=== PATIENT | female | born 1970 | race Caucasian/White ===

== ENCOUNTER 2017-08-20 15:55 | Emergency (ER) | payer OTHER ==
[~2017-08-20] VITALS: Ht 162.6 cm; Wt 94.8 kg
[~2017-08-20 15:55] MED LIST: CHOL100058 PO; HYDR12.556 PO; KET10 PO; LISI20TA29 PO; LOR5/325 PO
[2017-08-20] MEDS ORDERED: NORG1TAB74 PO (16:17)
[2017-08-20] MEDS ORDERED: MULT1TAB67 PO (16:17)
[2017-08-20] MEDS ORDERED: POTA20TA94 PO (16:17)
[2017-08-20] MEDS ORDERED: HYDR-2966 PO (16:17)
[2017-08-20] MEDS ORDERED: NS(*) 0.9% 1000 ML BAG 1,000 ML IV ONE ×2 (16:31→18:00)
[2017-08-20] MEDS ORDERED: ONDANSETRON 4 MG/2 ML VIAL IVP ONE (16:35)
[2017-08-20 16:39] LABS: PLATELET COUNT, AUTOMATED 295 K/uL (150-450)
[2017-08-20] MEDS ORDERED: POTASSIUM CHL 20 MEQ TABCR PO ONE (16:50)
[2017-08-20] MEDS ORDERED: MORPHINE 2 MG/ML SYR IVP ONE (18:05)
[2017-08-20] MEDS ORDERED: diphenhydrAMINE 50 MG/ML VIAL IVP ONE (19:00)
[2017-08-20] MEDS ORDERED: ONDA4TAB PO (19:15)
--- NOTE | 2017-08-20 19:16 | ER Report ---
History and Physical Time Seen By MD: 16:00 Hx. of Stated Complaint: pt reports vomiting and diarrhea, suspected food poisoning; pt hyperventilating , carpal-pedal spasms HPI/ROS CHIEF COMPLAINT: Nausea, vomiting, diarrhea HISTORY OF PRESENT ILLNESS: Patient is a 46-year-old female who presents the ED with complaint of nausea, vomiting, diarrhea for the past day. She states that yesterday she ate at a restaurant and [place], [place] and thought that the food tasted funny. She states about 2 hours later she started to have some diarrhea. She states that she had can continue will diarrhea through the night and this morning was having some nausea and vomiting as well. She states that today she has had about 7 episodes of emesis and 7 episodes of diarrhea. She states that she has not been able to drink fluids due to the amount nausea. She has noted some sharp epigastric area pain but this has been intermittent. Patient states that she does have a history of cholecystectomy. REVIEW OF SYSTEMS: Constitutional: No fever, no chills. Eyes: No discharge. ENT: No sore throat. Cardiovascular: No chest pain, no palpitations. Respiratory: No cough, no shortness of breath. Gastrointestinal: See history of present illness. Genitourinary: No hematuria. Musculoskeletal: No back pain. Skin: No rashes. Neurological: No headache. Allergies: Coded Allergies: azithromycin (Verified Allergy, Severe, SOB, 08/20/17) Penicillins (Verified Allergy, Intermediate, sob, 08/20/17) Home Meds Reported Medications Multivitamin With Minerals (HAIR, SKIN & NAILS) 1 Each Tablet, 1 EACH PO QDAY 08/20/17 Potassium Chloride (POTASSIUM CHLORIDE) 20 Meq Tab.er.prt, 20 MEQ PO QDAY 08/20/17 Hydrochlorothiazide (HYDROCHLOROTHIAZIDE) 25 Mg Tablet, 1 TAB PO QDAY, TAB 08/20/17 Norgestimate-Ethinyl Estradiol (SPRINTEC) 1 Each Tablet, 1 EACH PO QDAY 08/20/17 Cholecalciferol (Vitamin D3) (VITAMIN D) 1,000 Unit Capsule, PO, CAPSULE 10/16/15 Discontinued Reported Medications Hydrochlorothiazide (HYDROCHLOROTHIAZIDE) 12.5 Mg Capsule, 25 MG PO QDAY, CAPSULE 09/14/15 Lisinopril (LISINOPRIL) 20 Mg Tablet, PO QDAY, TAB 09/14/15 Reviewed Nurses Notes: Yes Old Medical Records Reviewed: Yes Hx Smoking: No Smoking Status: Never Smoker Hx Substance Use Disorder: No Hx Alcohol Use: No Constitutional Vital Sign - Last 24 Hours 08/20/17 08/20/17 08/20/17 08/20/17 16:00 16:15 16:16 16:17 Temp 98.9 Pulse 91 91 92 Resp 16 B/P (MAP) 129/83 129/83 (98) Pulse Ox 96 94 96 O2 Delivery Room Air 08/20/17 08/20/17 08/20/17 08/20/17 16:19 16:21 16:23 16:25 Pulse 91 91 90 90 Pulse Ox 96 96 96 92 08/20/17 08/20/17 08/20/17 08/20/17 16:27 16:29 16:30 16:31 Pulse 91 92 90 B/P (MAP) 120/58 (78) Pulse Ox 94 95 95 08/20/17 08/20/17 08/20/17 08/20/17 16:33 16:35 16:37 16:39 Pulse 87 88 87 86 Pulse Ox 96 89 89 95 08/20/17 08/20/17 08/20/17 08/20/17 16:41 16:43 16:45 16:47 Pulse 86 89 87 87 Pulse Ox 85 92 91 90 08/20/17 08/20/17 08/20/17 08/20/17 16:49 16:51 17:05 17:07 Pulse 94 88 84 Pulse Ox 95 98 98 99 08/20/17 08/20/17 08/20/17 08/20/17 17:09 17:11 17:13 17:15 Pulse 90 88 87 84 Pulse Ox 98 99 98 100 08/20/17 08/20/17 08/20/17 08/20/17 17:17 17:19 17:21 17:23 Pulse 77 77 75 77 Pulse Ox 98 96 98 97 08/20/17 08/20/17 08/20/17 08/20/17 17:25 17:27 17:29 17:31 Pulse 79 74 79 Pulse Ox 96 95 88 97 08/20/17 08/20/17 08/20/17 08/20/17 17:33 17:35 17:37 17:39 Pulse 77 76 76 Pulse Ox 98 99 99 95 08/20/17 08/20/17 08/20/17 08/20/17 17:41 17:43 17:52 17:53 Pulse 81 78 B/P (MAP) 134/74 (94) Pulse Ox 100 99 100 08/20/17 08/20/17 08/20/17 08/20/17 17:58 18:02 18:08 18:18 Pulse 77 75 77 B/P (MAP) 121/68 (85) Pulse Ox 99 99 99 08/20/17 08/20/17 08/20/17 18:18 18:28 18:30 Pulse 82 B/P (MAP) 119/54 (75) Pulse Ox 100 O2 Flow Rate 2.0 Intake and Output 08/20/17 08/20/17 08/21/17 15:00 23:00 07:00 Intake Total 1000 ml Balance 1000 ml Physical Exam General Appearance: The patient is alert, has no immediate need for airway protection and no signs of toxicity. Patient appears to be in mild distress. Eyes: Pupils equal and round no pallor or injection. ENT, Mouth: Mucous membranes are dry. Respiratory: There are no retractions, lungs are clear to auscultation. Cardiovascular: Regular rate and rhythm. Gastrointestinal: There is slight epigastric tenderness with palpation. No rebound or guarding is present. Normal bowel sounds in all 4 quadrants. Skin: Warm and dry, no rashes. Musculoskeletal: Neck is supple non tender. Extremities are nontender, nonswollen and have full range of motion. DIFFERENTIAL DIAGNOSIS: After history and physical exam differential diagnosis was considered for abdominal pain including but not limited to appendicitis, cholecystitis, gastritis and urinary tract infection. Medical Decision Making Data Points Result Diagram: 08/20/17 1626 08/20/17 1626 Laboratory Hematology Test 08/20/17 16:26 Red Blood Count 5.10 M/uL (4.17-5.56) Mean Corpuscular Volume 86.0 fL (80.0-96.0) Mean Corpuscular Hemoglobin 29.8 pg (26.0-33.0) Mean Corpuscular Hemoglobin Concent 34.6 g/dL (32.0-36.0) Red Cell Distribution Width 14.0 % (11.5-14.5) Mean Platelet Volume 8.4 fL (7.2-11.1) Neutrophils (%) (Auto) 94.2 % (39.4-72.5) Lymphocytes (%) (Auto) 3.9 % (17.6-49.6) Monocytes (%) (Auto) 1.8 % (4.1-12.4) Eosinophils (%) (Auto) 0.0 % (0.4-6.7) Basophils (%) (Auto) 0.1 % (0.3-1.4) Nucleated RBC Relative Count (auto) 0.0 /100WBC Neutrophils # (Auto) 10.5 K/uL (2.0-7.4) Lymphocytes # (Auto) 0.4 K/uL (1.3-3.6) Monocytes # (Auto) 0.2 K/uL (0.3-1.0) Eosinophils # (Auto) 0.0 K/uL (0.0-0.5) Basophils # (Auto) 0.0 K/uL (0.0-0.1) Nucleated RBC Absolute Count (auto) 0.00 K/uL Sodium Level 135 mmol/L (137-145) Potassium Level 3.0 mmol/L (3.5-5.0) Chloride Level 98 mmol/L (98-107) Carbon Dioxide Level 23 mmol/L (22-31) Blood Urea Nitrogen 21 mg/dl (7-18) Creatinine 1.00 mg/dl (0.52-1.04) Glomerular Filtration Rate Calc 59.7 Random Glucose 118 mg/dl (75-110) Calcium Level 8.7 mg/dl (8.4-10.2) Total Bilirubin 1.5 mg/dl (0.2-1.3) Aspartate Amino Transf (AST/SGOT) 22 U/L (0-35) Alanine Aminotransferase (ALT/SGPT) 22 U/L (0-56) Alkaline Phosphatase 59 U/L (0-126) Total Protein 7.5 gm/dl (6.3-8.2) Albumin 3.8 g/dl (3.5-5.0) Lipase 95 U/L (23-300) Human Chorionic Gonadotropin, Qual Negative (NEGATIVE) Chemistry Test 08/20/17 16:26 White Blood Count 11.1 k/uL (4.5-11.0) Red Blood Count 5.10 M/uL (4.17-5.56) Hemoglobin 15.2 g/dL (12.0-16.0) Hematocrit 43.9 % (34.0-47.0) Mean Corpuscular Volume 86.0 fL (80.0-96.0) Mean Corpuscular Hemoglobin 29.8 pg (26.0-33.0) Mean Corpuscular Hemoglobin Concent 34.6 g/dL (32.0-36.0) Red Cell Distribution Width 14.0 % (11.5-14.5) Platelet Count 295 K/uL (150-450) Mean Platelet Volume 8.4 fL (7.2-11.1) Neutrophils (%) (Auto) 94.2 % (39.4-72.5) Lymphocytes (%) (Auto) 3.9 % (17.6-49.6) Monocytes (%) (Auto) 1.8 % (4.1-12.4) Eosinophils (%) (Auto) 0.0 % (0.4-6.7) Basophils (%) (Auto) 0.1 % (0.3-1.4) Nucleated RBC Relative Count (auto) 0.0 /100WBC Neutrophils # (Auto) 10.5 K/uL (2.0-7.4) Lymphocytes # (Auto) 0.4 K/uL (1.3-3.6) Monocytes # (Auto) 0.2 K/uL (0.3-1.0) Eosinophils # (Auto) 0.0 K/uL (0.0-0.5) Basophils # (Auto) 0.0 K/uL (0.0-0.1) Nucleated RBC Absolute Count (auto) 0.00 K/uL Glomerular Filtration Rate Calc 59.7 Calcium Level 8.7 mg/dl (8.4-10.2) Total Bilirubin 1.5 mg/dl (0.2-1.3) Aspartate Amino Transf (AST/SGOT) 22 U/L (0-35) Alanine Aminotransferase (ALT/SGPT) 22 U/L (0-56) Alkaline Phosphatase 59 U/L (0-126) Total Protein 7.5 gm/dl (6.3-8.2) Albumin 3.8 g/dl (3.5-5.0) Lipase 95 U/L (23-300) Human Chorionic Gonadotropin, Qual Negative (NEGATIVE) ED Course/Re-evaluation Clinical Indication for ER IV: Hydration ED Course Will obtain labs. Patient will be given 4 mg IV Zofran and 1 L normal saline bolus. Patient was having some slight the increasing epigastric pain and is asking for some pain medication. Patient was given 2 mg IV morphine. She states that this helped to help with her pain and is feeling better. Her labs indicates that she does have some hyponatremia and hypokalemia. Patient was given 40 mEq of potassium orally and will be given another liter of normal saline. Patient is complaining of some itchiness as well as morphine was given. Will give her 50 mg IV Benadryl. She does have some mild cytosis. Likely stress-induced from multiple vomiting and diarrhea. She likely has gastroenteritis and discussed this with her. Decision to Disposition Date: Aug 20, 2017 Decision to Disposition Time: 19:14 Depart Departure Latest Vital Signs Vital Signs Date Time Temp Pulse Resp B/P (MAP) Pulse Ox O2 Delivery O2 Flow Rate FiO2 08/20/17 18:30 119/54 (75) 08/20/17 18:28 82 100 08/20/17 18:18 2.0 08/20/17 16:00 98.9 16 Room Air Impression: Primary Impression: Nausea vomiting and diarrhea Condition: Improved Disposition: HOME OR SELF-CARE Referrals: LALITO REED DO (PCP) [place] Ondansetron (ZOFRAN ODT) 4 Mg Tab.rapdis 4 MG PO Q6H Y for NAUSEA/VOMITING, #10 TAB.WENDY Prov: KEVEN SEYMOUR PA-C 08/20/17 Patient Instructions: Acute Diarrhea (ED), Acute Nausea and Vomiting (ED) Additional Instructions: Stay well-hydrated. Follow-up with primary care provider in 2-3 days. If having any worsening or concerning symptoms may return to the emergency department. KEVEN SEYMOUR PA-C Aug 20, 2017 19:16
[2017-08-20 19:17] VITALS: BP 109/73
== END 2017-08-20 19:20 | disposition home or self-care (01) ==
LOC: ER 16:02
DX: E87.1 Hypo-osmolality and hyponatremia (principal); E87.6 Hypokalemia
CPT/HCPCS: 83690; 84703; 85025; 96361; 96374; 96375; 99284; J1200; J2270; J2405; J7030; 82040; 82247; 82310; 82374; 82435; 82565; 82947; 84075; 84132; 84155; 84295; 84450; 84460; 84520

== ENCOUNTER → 2018-08-31 | Outpatient (CLI) | payer OTHER ==
[~2018-08-31] MED LIST changes: +HYDR-2966 PO; +MULT1TAB67 PO; +NORG1TAB74 PO; +ONDA4TAB PO; +POTA20TA94 PO
--- NOTE | 2018-09-01 17:24 | RADIOLOGY IMAGING REPORT ---
FACILITY: [facility] PATIENT NAME: SOPHIE BARONE : [id number] MR: [id number]: [id number] EXAM DATE: [id number] ORDERING PHYSICIAN: LALITO REED TECHNOLOGIST: Gladys Aguilar PROCEDURE:BILATERAL DIGITAL SCREENING MAMMOGRAM WITH CAD ASSISTED INTERPRETATION & 3D TOMOSYNTHESIS COMPARISON:Prior mammograms dated 09/04/15, 08/14/15, 06/13/14 INDICATIONS:SCREENING FINDINGS: The breasts are heterogeneously dense which can obscure small masses. The parenchymal pattern has remained stable allowing for difference in mammographic technique & patient positioning. Two biopsy clips are seen in the right breast one in the 9 o'clock position posterior third & one in the right retroareolar breast. DIAGNOSTIC CATEGORY 2--BENIGN FINDING. RECOMMENDATIONS: ROUTINE MAMMOGRAM AND CLINICAL EVALUATION. IMPRESSION: BIRADS 2: Benign finding. No significant abnormality is seen. Dictated by: Amanda Carolina M.D. on 08/31/2018 at 17:05 Transcribed by: DANIELA on 09/01/2018 at 9:51 Approved by: Amanda Carolina M.D. on 09/01/2018 at 17:23 [facility]
== END ==
LOC: MAMO 01:56
PROVIDERS: ATTEND Family Medicine
DX: Z12.31 Encounter for screening mammogram for malignant neoplasm of breast (principal)
CPT/HCPCS: 77063; 77067